=== PATIENT | male | born 1965 | race Caucasian/White ===

== ENCOUNTER 2018-08-25 05:09 | Emergency (ER) | payer OTHER ==
[~2018-08-25] VITALS: Ht 190.5 cm; Wt 88.5 kg
[2018-08-25 08:23] LABS: BASOPHILS ABSOLUTE AUTO 0.06 K/mm3 (0.00-0.23); BASOPHILS PERCENT AUTO 1 % (0-2); EOSINOPHILS ABSOLUTE AUTO 0.34 K/mm3 (0.00-0.68); EOSINOPHILS PERCENT AUTO 3 % (0-6); Hematocrit 44.4 % (37.0-53.0); Hemoglobin 14.8 g/dL (13.5-17.5); IMMATURE GRAN ABSOLUTE AUTO 0.03 K/mm3 (0.00-0.10); IMMATURE GRAN PERCENT AUTO 0 % (0-1); LYMPHOCYTES ABSOLUTE AUTO 2.07 K/mm3 (0.84-5.20); LYMPHOCYTES PERCENT AUTO 20 % (21-46); MONOCYTES ABSOLUTE AUTO 1.03 K/mm3 (0.16-1.47); MONOCYTES PERCENT AUTO 10 % (4-13); Mean Corpuscular HGB 30.3 pg (26.0-34.0); Mean Corpuscular HGB Conc 33.3 g/dL (31.5-36.5); Mean Corpuscular Volume 91 fL (80-100); Mean Platelet Volume 9.6 fL (9.1-12.4); NEUTROPHILS ABSOLUTE AUTO 6.92 K/mm3 (1.96-9.15); NEUTROPHILS PERCENT AUTO 66 % (41-73); Platelet Count 291 K/mm3 (150-400); RDW Coefficient Variation 13.4 % (11.7-14.2); RDW Standard Deviation 45.2 fL (35.1-46.3); Red Blood Cell Count 4.89 M/mm3 (4.30-5.90); White Blood Cell Count 10.45 K/mm3 (4.00-11.30)
[2018-08-25 08:29] LABS: Anion Gap 5 mmol/L (6-16); Blood Urea Nitrogen 19 mg/dL (8-24); Bun/Creatinine Ratio 23.8 (12.0-20.0); CO2, Blood 24 mmol/L (21-32); Calcium, Blood 8.2 mg/dL (8.5-10.1); Chloride, Blood 110 mmol/L (98-108); Glomerular Filtration Rate >60 (60-); Glucose, Blood 90 mg/dL (70-99); Sodium, Blood 139 mmol/L (136-145)
[2018-08-25] MEDS ORDERED: Percocet 10-321 EACH PO (09:34)
[2018-09-15] MEDS ORDERED: IBUP800 PO (13:15)
== END 2018-08-25 09:49 | disposition home or self-care (01) ==
LOC: ER 05:09
PROVIDERS: Emergency Medicine
DX: L04.0 Acute lymphadenitis of face, head and neck (principal); J35.9 Chronic disease of tonsils and adenoids, unspecified; F17.210 Nicotine dependence, cigarettes, uncomplicated
CPT/HCPCS: 36415; 70491; 80048; 85025; 86308; 87081; 87430; 96374; 99284-25; J1100; Q9967

== ENCOUNTER → 2018-08-26 | Outpatient (CLI) | payer OTHER ==
[~2018-08-26] MED LIST: IBUP800 PO; Omeprazole20 M1; Percocet 10-321 EACH PO
== END | disposition home or self-care (01) ==
LOC: LAB SHORT 07:22 → PLD 07:22
DX: C76.0 Malignant neoplasm of head, face and neck (principal)
CPT/HCPCS: 88173

== ENCOUNTER → 2018-08-30 | Outpatient (CLI) | payer OTHER | END | disposition home or self-care (01) | LOC: PLD 08:07 → LAB SHORT 08:07 | DX: C10.9 Malignant neoplasm of oropharynx, unspecified (principal); C09.8 Malignant neoplasm of overlapping sites of tonsil; R59.9 Enlarged lymph nodes, unspecified | CPT/HCPCS: 88305; 88341; 88342 ==

== ENCOUNTER 2018-09-20 09:29 | Day surgery (SDC) | payer OTHER ==
[~2018-09-20] VITALS: Ht 185.4 cm; Wt 86.6 kg
[~2018-09-20 09:29] MED LIST changes: -Omeprazole20 M1
[2018-09-20] MEDS ORDERED: Omeprazole20 M1 (10:00)
--- NOTE | 2018-09-20 10:10 | NUR ---
PT ADMITTED TO [facility]. AGREES WITH PLANNED SURGER. MEDS, ALLERGIES AND HX REVIEWED. LUNG SOUNDS CLEAR.
--- NOTE | 2018-09-20 12:03 | NUR ---
09/20/18 1203 Morris Mcintyre 4421 3-LEAD EKG REVIEWED WITH PHYSICIAN PRIOR TO START OF PROCEDURE. PATIENT CONFIRMS NPO STATUS AND AGREES WITH SCHEDULED PROCEDURE. History, Chart, Medications and Allergies reviewed before start of procedure.MONITOR INTACT WITH CONTINUOUS PULSE OXIMETRY AND INTERMITTENT BP.O2 VIA N/C INTACT THROUGHOUT SEDATION/PROCEDURE. Bite Block Placed
--- NOTE | 2018-09-20 13:11 | NUR ---
Patient up to Ambulate independently. Gait steady. Discharge instructions reviewed with patient. Patient verbalizes understanding. Copy given to patient to take home. Dressing to procedure site clean, dry, intact with no visible drainage, swelling, erythema or bruising noted. Patient States Post-Procedure ride home has been arranged. Pt and jessi were not pleased that he is to remain NPO for 6 hours post procedure. Discharged via wheelchair to private car for ride home.
== END 2018-09-20 22:37 | disposition home or self-care (01) ==
LOC: ORSCMMR 09:29 → ORD 11:00 → ORSCMMR 22:37
PROVIDERS: Surgery
PROC: 0DH63UZ Insertion of Feeding Device into Stomach, Percutaneous Approach (ICD-10-PCS; principal; 2018-09-20 11:00)
DX: C09.8 Malignant neoplasm of overlapping sites of tonsil (principal); J44.9 Chronic obstructive pulmonary disease, unspecified; F17.210 Nicotine dependence, cigarettes, uncomplicated; Z79.899 Other long term (current) drug therapy
CPT/HCPCS: C1769; J0690; J3010; J7120

== ENCOUNTER 2018-10-29 00:25 | Day surgery (SDC) | payer OTHER ==
[~2018-10-29 00:25] MED LIST changes: +Omeprazole20 M1
== END 2018-10-29 12:00 | disposition home or self-care (01) ==
LOC: ATC 00:25
DX: C09.8 Malignant neoplasm of overlapping sites of tonsil (principal); C77.0 Secondary and unspecified malignant neoplasm of lymph nodes of head, face and neck; E86.0 Dehydration; I10 Essential (primary) hypertension; F17.210 Nicotine dependence, cigarettes, uncomplicated
CPT/HCPCS: 96360; J7030